=== PATIENT | female | born 1975 | race Caucasian/White ===

== ENCOUNTER 2021-10-28 20:23 | Observation (INO) ==
[2021-10-28 21:27] LABS: Hematocrit (blood only) 44.3 % (37-47); Hemoglobin 14.8 g/dL (12.0-16.0); Mean Corpuscular Hemoglobin 32.2 pg (25-34); Mean Corpuscular Hgb Conc 33.4 g/dL (32-36); Mean Corpuscular Volume 96.3 fL (80-100); Mean Platelet Volume 10.2 fL (7.4-10.4); Platelet Count 444 K/uL (130-400); RDW Coefficient of Variation 13.2 % (11.5-14.5); RDW Standard Deviation 45.9 fL (36.4-46.3); White Blood Count 15.82 K/uL (4.8-10.8)
[2021-10-28 21:43] LABS: Basophils # (auto) 0.04 K/uL (0-0.2); Basophils % (auto) 0.3 %; Eosinophils # (auto) 0.45 K/uL (0-0.5); Eosinophils % (auto) 2.8 %; Immature Granulocytes # (auto) 0.04 K/uL (0.00-0.02); Immature Granulocytes % (auto) 0.3 %; Lymphocytes # (auto) 4.44 K/uL (1.2-3.4); Lymphocytes % (auto) 28.1 %; Monocytes # (auto) 0.87 K/uL (0.11-0.59); Monocytes % (auto) 5.5 %; Neutrophils # (auto) 9.98 K/uL (1.4-6.5)
[2021-10-28 21:47] LABS: Appearance Urine Cloudy (Clear); Bacteria Urine Automated 1+ (Negative); Bilirubin Urine Negative (Negative); Blood Urine Negative (Negative); Color Urine Dark Yellow; Epithelial Cell Urine Auto >30 /lpf (0-5); Glucose Urine UA Negative (Negative); Ketones Urine Trace (Negative); Leukocyte Esterase Urine Trace (Negative); Nitrite Urine Negative (Negative); Protein Urine Negative (Negative); Specific Gravity Urine 1.024 (1.000-1.030); Urobilinogen Urine Negative (Negative); pH Urine 5.5 (4.5-7.5)
[2021-10-28 21:58] LABS: Albumin Globulin Ratio 1.4 (0.9-2); Albumin Level 4.2 gm/dl (3.4-5.0); Bilirubin,Total 0.4 mg/dl (0.2-1.0); Calcium 9.3 mg/dl (8.5-10.1); Creatinine Clr Calc Pharmacy 100.5 ml/min; Est GFR (African American) 93.2 ml/min; Est GFR (Non-African American) 80.5 ml/min; Globulin 2.9 gm/dl (2.5-4.0); Potassium 3.4 mmol/L (3.5-5.1); Total Protein 7.1 gm/dl (6.0-8.3)
[2021-10-28] MEDS ORDERED: ONDANSETRON INJ 2 MG/ML 2 ML VIAL IV STA (22:22)
[2021-10-28] MEDS ORDERED: MoRPHine SULFATE 4 MG/ML 1 ML CARP\\VIAL IV STA (22:22)
[2021-10-28] MEDS ORDERED: HYDROmorphone INJ 0.5 MG/0.5 ML SYR IV STA (22:34)
--- NOTE | 2021-10-28 22:35 | Emergency Department Note ---
History of Present Illness General Chief complaint: Abdominal Pain Stated complaint: ABDOMINAL PAIN Time Seen by Provider: 10/28/21 22:22 Source: patient History of Present Illness Provider complaint: Epigastric abdominal pain Onset (ago): hour(s) Location: abdomen Radiation: non-radiation Pain Consistency: + constant Maximum Pain Intensity: 7 Quality: + stabbing Relieved By: + none Exacerbated By: + other (Deep breaths) Associated symptoms: + shortness of breath (Only because it hurts to take deep breaths); no chest pain, no cough, no fever/chills or no nausea/vomiting This is a 46-year-old female who has been having epigastric pain intermittently for the past 2 weeks. Today the pain got much worse starting 2 hours ago. She describes it as sharp and stabbing in the epigastric region without radiation. She states is worse when she takes deep breaths which makes her slightly short of breath. She denies any chest pain or cough or cold symptoms. She has had no fevers, vomiting, black or bloody stools or diarrhea. She denies any urinary symptoms. She denies any abdominal surgeries other than uterine ablation. Home Medications Medication Instructions Recorded Confirmed Type L norgest/E estradiol-E estrad 1 tab PO DAILY 10/28/21 10/28/21 History 0.15 mg-30 mcg (84)/10 mcg(7) tabs,3mos (Jaimiess) alprazolam 0.5 mg tablet 0.25 mg PO DAILY PRN 10/28/21 10/28/21 History bupropion HCl 150 mg 24 hr tablet, 150 mg PO DAILY 10/28/21 10/28/21 History extended release doxepin 100 mg capsule 100 mg PO DAILY 10/28/21 10/28/21 History ferrous sulfate 325 mg (65 mg 325 mg PO DAILY 10/28/21 10/28/21 History iron) tablet yboqscufkzgq-kfclvnotqcfh-byshcntkq 1 applic TOPICAL DAILY PRN 10/28/21 10/28/21 History 0.01 %-4 %-0.05 % topical cream (Tri-Maria E) modafinil 200 mg tablet 200 mg PO DAILY 10/28/21 10/28/21 History omeprazole 40 mg capsule,delayed 40 mg PO DAILY 10/28/21 10/28/21 History release Allergies Allergy/AdvReac Type Severity Reaction Status Date / Time erythromycin base AdvReac Mild Nausea Verified 10/28/21 22:28 Past Med/Surg History Medical History Depression Social History Smoking Status: Never smoker Feels Safe at Home: Yes Review of Systems See HPI for pertinent positives & negatives. and A total of 10 systems reviewed and were otherwise negative Physical Exam Vital Signs Vital Signs - 24 hr 10/28/21 20:26 10/28/21 21:39 10/28/21 21:40 Temperature 36.0 C L Temperature Source Temporal Artery Scan Pulse Rate 106 H 96 H 99 H Pulse Rate from SpO2 Sensor 96 H 100 H Respiratory Rate 16 18 19 Blood Pressure 167/102 H Blood Pressure Mean 123 Blood Pressure Position Sitting Pulse Oximetry 98 94 94 Oxygen Delivery Method Room Air Sepsis Recent Fever Within 48 Hours No Sepsis New/Unexplained Change in Mental Status No Sepsis Action Taken by Nursing No Action Required 10/28/21 21:50 10/28/21 22:00 10/28/21 22:10 Temperature Temperature Source Pulse Rate 95 H 87 91 H Pulse Rate from SpO2 Sensor 95 H 90 90 Respiratory Rate 17 19 18 Blood Pressure Blood Pressure Mean Blood Pressure Position Pulse Oximetry 94 98 97 Oxygen Delivery Method Sepsis Recent Fever Within 48 Hours Sepsis New/Unexplained Change in Mental Status Sepsis Action Taken by Nursing 10/28/21 22:20 10/28/21 22:30 10/28/21 22:40 Temperature Temperature Source Pulse Rate 102 H 98 H 103 H Pulse Rate from SpO2 Sensor 101 H 96 H 103 H Respiratory Rate 33 H 22 30 H Blood Pressure Blood Pressure Mean Blood Pressure Position Pulse Oximetry 99 97 97 Oxygen Delivery Method Sepsis Recent Fever Within 48 Hours Sepsis New/Unexplained Change in Mental Status Sepsis Action Taken by Nursing 10/28/21 22:50 10/28/21 23:00 10/28/21 23:10 Temperature Temperature Source Pulse Rate 88 90 93 H Pulse Rate from SpO2 Sensor 90 89 94 H Respiratory Rate 17 14 14 Blood Pressure Blood Pressure Mean Blood Pressure Position Pulse Oximetry 97 95 96 Oxygen Delivery Method Sepsis Recent Fever Within 48 Hours Sepsis New/Unexplained Change in Mental Status Sepsis Action Taken by Nursing 10/28/21 23:20 10/28/21 23:27 Temperature Temperature Source Pulse Rate 92 H 90 Pulse Rate from SpO2 Sensor 93 H 91 H Respiratory Rate 13 16 Blood Pressure 140/93 Blood Pressure Mean 108 Blood Pressure Position Pulse Oximetry 94 94 Oxygen Delivery Method Sepsis Recent Fever Within 48 Hours Sepsis New/Unexplained Change in Mental Status Sepsis Action Taken by Nursing Constitutional: Vital signs reviewed. Eyes: Pupils are equal round reactive to light. Conjunctiva are noninjected. ENT: Pharynx is clear without erythema or exudate. Mucous membranes are moist. Neck supple without meningeal signs. Respiratory: Clear to auscultation bilaterally. Breath sounds are equal bilaterally. Cardiovascular: Tachycardic. Regular rhythm. GI: Soft, nondistended with tenderness in the epigastric and right upper quadrant. Positive Shaffer sign. Bowel sounds are present. Musculoskeletal: No peripheral edema. No lower extremity tenderness. Integumentary: No cyanosis. or jaundice. Neurological: The patient is awake and alert. No focal deficits. Psychiatric: Normal affect. Not anxious appearing. Course Administered Medications Discontinued Medications Hydromorphone HCl (Hydromorphone Inj 0.5 Mg/0.5 Ml Syr) 0.5 mg IV NOW STA Stop: 10/28/21 22:35 Last Admin: 10/28/21 22:39 Dose: 0.5 mg Documented by: [id number] Morphine Sulfate (Morphine Sulfate 4 Mg/Ml 1 Ml Carp\Vial) 4 mg IV NOW STA Stop: 10/28/21 22:23 Last Admin: 10/28/21 23:19 Dose: Not Given Documented by: [id number] Ondansetron HCl (Ondansetron Inj 2 Mg/Ml 2 Ml Vial) 4 mg IV NOW STA Stop: 10/28/21 22:23 Last Admin: 10/28/21 22:39 Dose: 4 mg Documented by: [id number] Medical Decision Making Differential Diagnosis Cholelithiasis, cholecystitis, pancreatitis, NH, GERD, peptic ulcer disease Medical Records Attestation: I reviewed the patient's medical records. I did perform a limited focused review of portions of the patient's old chart on the electronic medical record. The patient has had no recent pertinent visits to this hospital. Home Medications Current Medication List: was personally reviewed by me Laboratory Data Attestation: I reviewed the patient's lab results. Result diagrams: 10/28/21 21:13 10/28/21 21:13 Lab Results 10/28/21 10/28/21 10/28/21 Range/Units 21:13 21:13 21:13 WBC 15.82 H (4.8-10.8) K/uL RBC 4.60 (4.2-5.4) M/uL Hgb 14.8 (12.0-16.0) g/dL Hct 44.3 (37-47) % MCV 96.3 (80-100) fL MCH 32.2 (25-34) pg MCHC 33.4 (32-36) g/dL RDW Std Deviation 45.9 (36.4-46.3) fL RDW Coeff of Antione 13.2 (11.5-14.5) % Plt Count 444 H (130-400) K/uL MPV 10.2 (7.4-10.4) fL Immature Gran % (Auto) 0.3 % Neut % (Auto) 63.0 % Lymph % (Auto) 28.1 % [place] % (Auto) 5.5 % Eos % (Auto) 2.8 % Baso % (Auto) 0.3 % Neut # (Auto) 9.98 H (1.4-6.5) K/uL Lymph # (Auto) 4.44 H (1.2-3.4) K/uL [place] # (Auto) 0.87 H (0.11-0.59) K/uL Eos # (Auto) 0.45 (0-0.5) K/uL Baso # (Auto) 0.04 (0-0.2) K/uL Immature Gran # (Auto) 0.04 H (0.00-0.02) K/uL Sodium 137 (136-145) mmol/L Potassium 3.4 L (3.5-5.1) mmol/L Chloride 104 (98-107) mmol/L Carbon Dioxide 23 (21-32) mmol/L Anion Gap 10 (3-11) BUN 7 (6-23) mg/dl Creatinine 0.87 (0.6-1.2) mg/dl Est Cr Clr Drug Dosing 100.5 ml/min Est GFR ( Amer) 93.2 ml/min Est GFR (Non-Af Amer) 80.5 ml/min BUN/Creatinine Ratio 8.0 L (10-20) Glucose 130 H (70-99(Fasting)) mg/dl Calcium 9.3 (8.5-10.1) mg/dl Total Bilirubin 0.4 (0.2-1.0) mg/dl AST 28 (13-39) U/L ALT 22 (7-52) U/L Alkaline Phosphatase 72 (34-104) U/L Total Protein 7.1 (6.0-8.3) gm/dl Albumin 4.2 (3.4-5.0) gm/dl Globulin 2.9 (2.5-4.0) gm/dl Albumin/Globulin Ratio 1.4 (0.9-2) Lipase 67 (11-82) U/L Urine Color Dark Yellow Urine Appearance Cloudy A (Clear) Urine pH 5.5 (4.5-7.5) Ur Specific [place] 1.024 (1.000-1.030) Urine Protein Negative (Negative) Urine Glucose (UA) Negative (Negative) Urine Ketones Trace H (Negative) Urine Blood Negative (Negative) Urine Nitrite Negative (Negative) Urine Bilirubin Negative (Negative) Urine Urobilinogen Negative (Negative) Ur Leukocyte Esterase Trace H (Negative) Urine WBC (Auto) 10-30 H (0-5) /hpf Urine RBC (Auto) 5-10 H (0-4) /hpf U Hyaline Cast (Auto) 1-5 (0-5) /lpf U Epithel Cells (Auto) >30 H (0-5) /lpf Urine Bacteria (Auto) 1+ H (Negative) POC Ur Test (NEG) SARS-CoV-2, RNA, NAAT (NEGATIVE) 10/28/21 10/28/21 Range/Units 21:13 23:26 WBC (4.8-10.8) K/uL RBC (4.2-5.4) M/uL Hgb (12.0-16.0) g/dL Hct (37-47) % MCV (80-100) fL MCH (25-34) pg MCHC (32-36) g/dL RDW Std Deviation (36.4-46.3) fL RDW Coeff of Antione (11.5-14.5) % Plt Count (130-400) K/uL MPV (7.4-10.4) fL Immature Gran % (Auto) % Neut % (Auto) % Lymph % (Auto) % [place] % (Auto) % Eos % (Auto) % Baso % (Auto) % Neut # (Auto) (1.4-6.5) K/uL Lymph # (Auto) (1.2-3.4) K/uL [place] # (Auto) (0.11-0.59) K/uL Eos # (Auto) (0-0.5) K/uL Baso # (Auto) (0-0.2) K/uL Immature Gran # (Auto) (0.00-0.02) K/uL Sodium (136-145) mmol/L Potassium (3.5-5.1) mmol/L Chloride (98-107) mmol/L Carbon Dioxide (21-32) mmol/L Anion Gap (3-11) BUN (6-23) mg/dl Creatinine (0.6-1.2) mg/dl Est Cr Clr Drug Dosing ml/min Est GFR ( Amer) ml/min Est GFR (Non-Af Amer) ml/min BUN/Creatinine Ratio (10-20) Glucose (70-99(Fasting)) mg/dl Calcium (8.5-10.1) mg/dl Total Bilirubin (0.2-1.0) mg/dl AST (13-39) U/L ALT (7-52) U/L Alkaline Phosphatase (34-104) U/L Total Protein (6.0-8.3) gm/dl Albumin (3.4-5.0) gm/dl Globulin (2.5-4.0) gm/dl Albumin/Globulin Ratio (0.9-2) Lipase (11-82) U/L Urine Color Urine Appearance (Clear) Urine pH (4.5-7.5) Ur Specific [place] (1.000-1.030) Urine Protein (Negative) Urine Glucose (UA) (Negative) Urine Ketones (Negative) Urine Blood (Negative) Urine Nitrite (Negative) Urine Bilirubin (Negative) Urine Urobilinogen (Negative) Ur Leukocyte Esterase (Negative) Urine WBC (Auto) (0-5) /hpf Urine RBC (Auto) (0-4) /hpf U Hyaline Cast (Auto) (0-5) /lpf U Epithel Cells (Auto) (0-5) /lpf Urine Bacteria (Auto) (Negative) POC Ur Test NEG (NEG) SARS-CoV-2, RNA, NAAT NEGATIVE (NEGATIVE) Imaging Data Radiologist's Impression: [facility] Patient: DONNA KIM (Female) : 77 Status: ER Date: 10/29/21 00:06 Room #: History: EPIGASTRIC PAIN Slices: 77 Priors: Tech: Nithya Garsia @ [phone] Exams: US RUQ Contrast: Accession Numbers: [id number] Referring Physician: REFERRED SELF Preliminary Findings Only See Final Report For Complete Findings US RUQ: Gallbladder stones. 2.7 cm echogenic nonvascular structure may represent a sludge ball or stone. Wall thickness upper normal at 3 mm. No pericholecystic fluid. Positive sonographic Shaffer sign. Findings are equivocal for acute cholecystitis. Correlate and could consider HIDA scan. No biliary dilation Query mild right hydronephrosis Radiologist: Radha Veras M.D. Study ready at 00:08 and initial results transmitted at 00:25 ECG Data Attestation: I personally reviewed and interpreted this ECG as follows: Indication: + abdominal pain Rate (beats per minute): 84 Rhythm: + normal sinus ECG Dragoon: + Normal ECG ST segments: no ST elevation ECG Findings: no PVCs Comparison ECG Date: no prior available MDM Narrative I did evaluate the patient as noted above. The patient is presenting with epigastric and right upper quadrant pain and tenderness for the past several hours. She has significant tenderness on examination. I am concerned about cholecystitis. access was established. I did treat her with IV Dilaudid and Zofran. I did place an order for continuous cardiac monitoring. The monitor showed sinus tachycardia rate of 106 bpm. I did order and personally review the patient's 12-lead EKG as described above. I did order a urine analysis. This appears to be likely a contaminated specimen. She denies urinary symptoms. Urine test was negative. I did order and review the patient's blood work as noted in the electronic medical record. Her white blood cell count is elevated at 15.8. Platelet count is 444. She is not anemic. Electrolytes are unremarkable other than a potassium of 3.4. LFTs and lipase are within normal limits. I did order an ultrasound of the right upper quadrant. I did review the images myself as well as the radiology report as described above. She does have multiple gallstones as well as a possible sludge ball. There is no pericholecystic fluid but she does have a positive sonographic Shaffer sign as well as her wall thickness being at the upper normal at 3 mm. These findings are concerning for cholecystitis. She does have a clinical examination consistent with cholecystitis and an elevated white count of over 15,000. I did reassess the patient. She states she is feeling much better but still has tenderness in the upper abdomen and right upper quadrant. I did recommend hospitalization and surgical consultation. I did discuss the case with Kevin Robins of the surgical service. He did see the patient in the emergency department and spoke to Dr. Fenton. She was hospitalized for further care and evaluation. COVID screening is negative. Impression & Plan Acute calculous cholecystitis Discharge Plan Visit Data Chief Complaint: Abdominal Pain Stated Complaint: ABDOMINAL PAIN ED Provider: Enrique Horn Discharge Problem: Acute calculous cholecystitis Patient Disposition: Being Evaluated by Surgeon Forms Stand Alone Forms: My [facility] Prescriptions Prescriptions: No Action omeprazole 40 mg Capsule,Delayed Release(Dr/Ec) 40 mg PO DAILY RF: 0 alprazolam 0.5 mg tablet 0.25 mg PO DAILY PRN (Reason: Anxiety) RF: 0 modafinil 200 mg tablet 200 mg PO DAILY RF: 0 doxepin 100 mg capsule 100 mg PO DAILY RF: 0 ferrous sulfate 325 mg (65 mg iron) Tablet 325 mg PO DAILY RF: 0 Tri-Maria E 0.01-4-0.05 % Cream 1 applic TOPICAL DAILY PRN (Reason: UNTIL AREA CLEAR) RF: 0 bupropion HCl 150 mg tablet extended release 24 hr 150 mg PO DAILY RF: 0 L norgest/e.estradiol-e.estrad [Jaimiess] 0.15 mg-30 mcg (84)/10 mcg (7) tablets,dose pack,3 month 1 tab PO DAILY RF: 0 Referrals Referrals: PCP,NO [Physician] -
--- NOTE | 2021-10-29 01:09 | History & Physical Report ---
Date of Service October 29, 2021 Assessment & Plan (1) Cholelithiasis: Plan: Due to the patient's imaging and clinical presentation she will be admitted to the hospital. I suspect her pain is secondary to biliary colic. We will proceed as follows: Analgesia will be provided Antiemetics will be provided We will keep the patient n.p.o. We will hydrate with IV fluids supplementing her potassium in the process We will administer antibiotics in the form of Zosyn We have tentatively plan for performing a cholecystectomy with Dr. Fenton the morning of 10/29/2021. I discussed the surgery with the patient outlining the risks, benefits, and expected postoperative course and she wishes to proceed Additional recommendations will based on operative findings and her postoperative recovery We will use SCDs for DVT prevention, no chemical means due to planned surgery She will be a level 1 full code History of Present Illness Chief Complaint: Abdominal pain Primary Care Provider: Cathleen Sanchez PA-C This is a 46-year-old female who presented to [facility] emergency department secondary to abdominal pain. Patient notes that the pain is located in the epigastric area and right upper quadrant. She reports that the pain radiates somewhat to her back. She did not have any nausea or vomiting and also denies any fevers, shakes, chills. The patient notes that she has been having pain such as this on and off for several weeks and is unrelated to meals. She reported to the emergency department today as she noted the pain was far worse and did not remit like it usually does. She does report having had prior abdominal surgeries that she has had a laparoscopic tubal ligation but has had no other abdominal surgeries. She notes with her current pain the pain was palliated with medicines administered in the emergency department. Today in the emergency department the patient had labs and imaging which independent reviewed. CBC revealed white blood cell count was elevated at 15.8. Hemoglobin, hematocrit, were noted to be normal. Her platelet count was 444,000. Chemistry profile showed sodium and potassium are 137 and 3.4 respectively. BUN and creatinine were both normal. There is no significant elevation of her bilirubin, transaminases, alkaline phosphatase, or lipase. Urinalysis did show 10-30 white blood cells per high-power field but was negative for nitrite. Trace leukocyte Estrace was noted on this specimen. There is also 1+ bacteria in her urine specimen. A test was noted to be negative. A COVID test was negative. A gallbladder ultrasound was performed that did show cholelithiasis. There is also sludge noted in the gallbladder and the gallbladder wall thickness was 3 mm which was the upper limit of normal. No pericholecystic fluid was noted. At the time of my interview she was resting comfortably in bed and she was in no distress. Allergies Allergy/AdvReac Type Severity Reaction Status Date / Time erythromycin base AdvReac Mild Nausea Verified 10/28/21 22:28 Home Medications Medication Instructions Recorded Confirmed Type L norgest/E estradiol-E estrad 1 tab PO DAILY 10/28/21 10/28/21 History 0.15 mg-30 mcg (84)/10 mcg(7) tabs,3mos (Jaimiess) alprazolam 0.5 mg tablet 0.25 mg PO DAILY PRN 10/28/21 10/28/21 History bupropion HCl 150 mg 24 hr tablet, 150 mg PO DAILY 10/28/21 10/28/21 History extended release doxepin 100 mg capsule 100 mg PO DAILY 10/28/21 10/28/21 History ferrous sulfate 325 mg (65 mg 325 mg PO DAILY 10/28/21 10/28/21 History iron) tablet vpvylucyltpw-mnyujlzzzzhw-rcnbxxasr 1 applic TOPICAL DAILY PRN 10/28/21 10/28/21 History 0.01 %-4 %-0.05 % topical cream (Tri-Maria E) modafinil 200 mg tablet 200 mg PO DAILY 10/28/21 10/28/21 History omeprazole 40 mg capsule,delayed 40 mg PO DAILY 10/28/21 10/28/21 History release Past Med/Surg History Medical History Depression Social History Smoking Status: Never smoker Feels Safe at Home: Yes Review of Systems Constitutional: no fever and no chills Eyes: no diplopia Ear, Nose, Mouth, Throat: no ear pain Respiratory: no cough Cardiovascular: no chest pain Gastrointestinal: + abdominal pain; no nausea and no vomiting Genitourinary: no dysuria Musculoskeletal: no back pain Integumentary: no rash Neurologic: no localized weakness Physical Exam Constitutional: WD/WN, vitals as above Eyes: no conjunctival abnormality ENMT: Ears: no hearing impairment and no external ear abnormality Mouth: no oropharynx abnormality Neck: trachea midline Respiratory: normal respiratory effort, lungs clear to auscultation Cardiovascular: Rate/Rhythm: regular rate and regular rhythm Gastrointestinal (Abdomen): Abdomen is soft and nondistended. There is no rebound tenderness or guarding. The patient did have pain with palpation in the epigastric area as well as the right upper quadrant with a positive Shaffer sign. Musculoskeletal: No calf tenderness Skin: no rashes Neurologic: moves all extremities Psychiatric: A+Ox3, euthymic affect Results & Data Results & Data ([facility]) Vital Signs (Past 12 Hours) Vital Signs Temp Pulse Resp BP Pulse Ox 10/28/21 23:27 90 16 140/93 94 10/28/21 23:20 92 H 13 94 10/28/21 23:10 93 H 14 96 10/28/21 23:00 90 14 95 10/28/21 22:50 88 17 97 10/28/21 22:40 103 H 30 H 97 10/28/21 22:30 98 H 22 97 10/28/21 22:20 102 H 33 H 99 10/28/21 22:10 91 H 18 97 10/28/21 22:00 87 19 98 10/28/21 21:50 95 H 17 94 10/28/21 21:40 99 H 19 94 10/28/21 21:39 96 H 18 94 10/28/21 20:26 36.0 C L 106 H 16 167/102 H 98 PG Care Time/CCT Total # of Minutes Spent Total Time Spent with Patient: Total time spent is greater than 50% in coordination of care (as documented) at patient's floor/unit and/or counseling patient: Coding Level of Care Code INT OBSERVATION CARE 70M LVL 3 Diagnoses Cholelithiasis K80.20
[2021-10-29] MEDS ORDERED: ONDANSETRON INJ 2 MG/ML 2 ML VIAL IV PRN ×3 (01:13→10:26)
[2021-10-29] MEDS ORDERED: PIPERACILLIN/TAZOBACTAM 3.375 GM in DEXTROSE 5% 100 ML/100 ML BAG IV STA (01:13)
[2021-10-29] MEDS ORDERED: ACETAMINOPHEN 1,000 MG/100 ML VIAL IV PRN (01:13)
[2021-10-29] MEDS ORDERED: MoRPHine SULFATE 4 MG/ML 1 ML CARP\\VIAL IV PRN (01:13)
[2021-10-29] MEDS ORDERED: POTASSIUM CHLORIDE 10 MEQ in LACTATED RINGER'S 1,000 ML IV SCH (01:15)
[2021-10-29] MEDS ORDERED: ALPRAZolam 0.25 MG TABLET PO PRN (03:37)
[2021-10-29] MEDS ORDERED: PIPERACILL/TAZOBAC CONSULT ACTIVE PRN ×2 (03:37)
--- NOTE | 2021-10-29 07:57 | Anesthesiology Consultation ---
Date of Service October 29, 2021 Assessment & Plan (1) Encounter for pre-operative examination: Chart Review Chart Review: Acceptable Risk for Surgery History Surgery Operation Date: 10/29/21 08:40 Proposed Procedures p Laparoscopic Cholecystectomy Possible Open - Moshe Fenton MD, FACS Height/Weight Height: 5 ft 8 in Weight: 99 kg Allergies Allergy/AdvReac Type Severity Reaction Status Date / Time erythromycin base AdvReac Mild Nausea Verified 10/28/21 22:28 Medications Home Medications Medication Instructions Recorded Confirmed Last Taken L norgest/E estradiol-E estrad 1 tab PO DAILY 10/28/21 10/28/21 10/28/21 0.15 mg-30 mcg (84)/10 mcg(7) tabs,3mos (Jaimiess) alprazolam 0.5 mg tablet 0.25 mg PO DAILY PRN 10/28/21 10/28/21 Unknown bupropion HCl 150 mg 24 hr tablet, 150 mg PO DAILY 10/28/21 10/28/21 10/28/21 extended release doxepin 100 mg capsule 100 mg PO DAILY 10/28/21 10/28/21 10/28/21 ferrous sulfate 325 mg (65 mg 325 mg PO DAILY 10/28/21 10/28/21 10/28/21 iron) tablet enmitqjnznto-cjtsxinibpha-quyisshng 1 applic TOPICAL DAILY PRN 10/28/21 10/28/21 Unknown 0.01 %-4 %-0.05 % topical cream (Tri-Maria E) modafinil 200 mg tablet 200 mg PO DAILY 10/28/21 10/28/21 10/28/21 omeprazole 40 mg capsule,delayed 40 mg PO DAILY 10/28/21 10/28/21 10/28/21 release Active Medications Generic Name Dose Route Start Last Admin Trade Name Freq PRN Reason Stop Dose Admin Potassium Chloride 10 meq/ 1,005 mls @ 75 mls/hr 10/29/21 01:15 10/29/21 05:17 Lactated Ringer's IV 11/28/21 01:14 75 mls/hr .[id number] BRIANNA Administration Miscellaneous 1 ea 10/29/21 08:00 10/29/21 07:37 Order Awaiting Action: Fluocinolone-Hydroq.-Tretinoin [Tri-Maria E] 0.01-4-0.05 % Cream N/A 11/28/21 07:59 Not Given QS BRIANNA Miscellaneous 1 ea 10/29/21 08:00 10/29/21 07:38 Order Awaiting Action: L Norgest/E.Estradiol-E.Estrad [Jaimiess] 0.15 Mg-30 Mcg (84)/10 N/A 11/28/21 07:59 Not Given QS BRIANNA Past Medical History Medical History Depression Social History Smoking Status: Never smoker Hx Alcohol Use: No Hx Substance Use: No Physical Exam Vital Signs Last Vital Signs Temp 36.9 C 10/29/21 07:19 Pulse 84 10/29/21 07:19 Resp 16 10/29/21 07:19 BP 125/79 10/29/21 07:19 Pulse Ox 96 10/29/21 07:19 Testing Laboratory Results Urine Color Dark Yellow 10/28/21 21:13 Urine Appearance Cloudy (Clear) A 10/28/21 21:13 Urine pH 5.5 (4.5-7.5) 10/28/21 21:13 Ur Specific [place] 1.024 (1.000-1.030) 10/28/21 21:13 Urine Protein Negative (Negative) 10/28/21 21:13 Urine Glucose (UA) Negative (Negative) 10/28/21 21:13 Urine Ketones Trace (Negative) H 10/28/21 21:13 Urine Nitrite Negative (Negative) 10/28/21 21:13 Ur Leukocyte Esterase Trace (Negative) H 10/28/21 21:13 Urine WBC (Auto) 10-30 /hpf (0-5) H 10/28/21 21:13 Urine RBC (Auto) 5-10 /hpf (0-4) H 10/28/21 21:13 U Hyaline Cast (Auto) 1-5 /lpf (0-5) 10/28/21 21:13 U Epithel Cells (Auto) >30 /lpf (0-5) H 10/28/21 21:13 Urine Bacteria (Auto) 1+ (Negative) H 10/28/21 21:13 10/28/21 21:13 POC Ur Test NEG Laboratory Tests 10/28/21 10/28/21 21:13 21:13 Hgb 14.8 Plt Count 444 H Potassium 3.4 L
[2021-10-29 08:00] LABS: Basophils # (auto) 0.04 K/uL (0-0.2); Basophils % (auto) 0.4 %; Eosinophils # (auto) 0.27 K/uL (0-0.5); Eosinophils % (auto) 2.7 %; Hematocrit (blood only) 40.9 % (37-47); Hemoglobin 13.5 g/dL (12.0-16.0); Immature Granulocytes # (auto) 0.02 K/uL (0.00-0.02); Immature Granulocytes % (auto) 0.2 %; Lymphocytes # (auto) 2.67 K/uL (1.2-3.4); Lymphocytes % (auto) 26.8 %; Mean Corpuscular Hemoglobin 31.3 pg (25-34); Mean Corpuscular Volume 94.9 fL (80-100); Mean Platelet Volume 10.2 fL (7.4-10.4); Monocytes # (auto) 0.72 K/uL (0.11-0.59); Monocytes % (auto) 7.2 %; Neutrophils # (auto) 6.24 K/uL (1.4-6.5); Neutrophils % (auto) 62.7 %; Platelet Count 397 K/uL (130-400); RDW Coefficient of Variation 13.2 % (11.5-14.5); RDW Standard Deviation 45.8 fL (36.4-46.3); Red Blood Count 4.31 M/uL (4.2-5.4); White Blood Count 9.96 K/uL (4.8-10.8)
[2021-10-29] MEDS ORDERED: PROPOFOL IV EMULSION 10 MG/ML 20 ML VIAL IV ONE (08:02)
[2021-10-29] MEDS ORDERED: ONDANSETRON INJ 2 MG/ML 2 ML VIAL ONE (08:02)
[2021-10-29] MEDS ORDERED: MIDAZOLAM HCL 1 MG/ML 2ML VIAL ONE (08:02)
[2021-10-29] MEDS ORDERED: fentaNYL citrate 100 MCG/2 ML VIAL ONE ×2 (08:02)
[2021-10-29] MEDS ORDERED: DEXAMETHASONE SOD INJ 4 MG/ML VIAL ONE (08:02)
[2021-10-29] MEDS ORDERED: NEOSTIGMINE METHYLSULFATE 1 MG/ML 10ML VIAL ONE (08:02)
[2021-10-29] MEDS ORDERED: LIDOCAINE 2% 2 ML VIAL/AMP(20MG/ML) INFIL ONE (08:02)
[2021-10-29] MEDS ORDERED: GLYCOPYRROLATE 0.2 MG/ML VIAL ONE (08:02)
[2021-10-29] MEDS ORDERED: KETOROLAC 30 MG/ML VIAL IV PRN (08:09)
[2021-10-29] MEDS ORDERED: PROMETHAZINE HCL 12.5 MG in SODIUM CHLORIDE 0.9% 50 ML IV PRN ×2 (08:09→10:26)
[2021-10-29] MEDS ORDERED: ATROPINE SULFATE 0.1 MG/ML 10ML SYR IV PRN (08:09)
[2021-10-29] MEDS ORDERED: fentaNYL citrate 100 MCG/2 ML VIAL IV PRN (08:09)
[2021-10-29] MEDS ORDERED: BUPIVACAINE 0.5 % 5 MG/1 ML MPF 30ML VIAL ONE (08:20)
--- NOTE | 2021-10-29 08:52 | Ultrasound Report ---
US gallbladder CLINICAL HISTORY: Right upper quadrant abdominal pain. Evaluate for acute cholecystitis. COMPARISON STUDY: No previous studies for comparison. FINDINGS: This exam is compromised by suboptimal penetration. Pancreas is largely obscured. No hepati c lesions are identified. Caliber of the common bile duct is normal, measuring 5 mm. A large shadowin g gallstone within the gallbladder is noted. Note is also made of a 2.7 cm echogenic focus within the gallbladder without color flow. Positive sonographic Shaffer sign was elicited. No gallbladder wall t hickening. No pericholecystic fluid. Pancreas is largely obscured. There is mild right collecting sys tem dilatation. IMPRESSION: Cholelithiasis with positive sonographic Shaffer sign. These findings raise the possibili ty of acute cholecystitis. ACT 112: Negative or not required by law. Electronically signed by: Harjit Ocasio M.D. 10/29/2021 8:51 AM
[2021-10-29 09:00] LABS: Albumin Globulin Ratio 1.5 (0.9-2); Albumin Level 3.8 gm/dl (3.4-5.0); Bilirubin,Total 0.7 mg/dl (0.2-1.0); Calcium 9.1 mg/dl (8.5-10.1); Creatinine Clr Calc Pharmacy 116.5 ml/min; Est GFR (African American) 111.6 ml/min; Est GFR (Non-African American) 96.3 ml/min; Globulin 2.5 gm/dl (2.5-4.0); Total Protein 6.3 gm/dl (6.0-8.3)
[2021-10-29] MEDS ORDERED: modafiniL 100 MG TAB PO SCH (09:00)
[2021-10-29] MEDS ORDERED: PANTOprazole 40 MG TAB PO SCH (09:00)
[2021-10-29] MEDS ORDERED: buPROPion XL 150 MG TABCR PO SCH (09:00)
[2021-10-29] MEDS ORDERED: ROCURONIUM BROMIDE 10 MG/ML 5 ML VIAL IV ONE (09:10)
[2021-10-29] MEDS ORDERED: KETOROLAC 30 MG/ML VIAL ONE (09:10)
--- NOTE | 2021-10-29 09:21 | Post Operative Brief Note ---
PG Immediate Post Op with CF Date of Surgery October 29, 2021 Pre & Post Diagnosis Operation Date: 10/29/21 08:40 Pre-Op Diagnosis: Cholelithiasis Post-Op Diagnosis: Cholelithiasis, acute cholecystitis I identified the patient and participated in the time-out.: Yes Procedure Operation Date: 10/29/21 08:40 Actual Procedures p Laparoscopic Cholecystectomy (Not Applicable) - Moshe Fenton MD, FACS Surgeon Moshe Fenton MD, FACS Grants Analyst Magaly Ugalde Estimated Blood Loss 10 Findings Consistent with Post-Op Diagnosis Edema of the gallbladder and a small stone in the cystic duct sludge in the gallbladder Specimens Specimen Description: A. Gallbladder
[2021-10-29] MEDS ORDERED: ACETAMINOPHEN 1,000 MG/100 ML VIAL IV ONE (09:30)
[2021-10-29] MEDS ORDERED: SODIUM CHLORIDE 0.9% 50 ML BAG ONE (09:50)
[2021-10-29] MEDS ORDERED: PROMETHAZINE HCL INJ 25 MG/ML 1 ML VIAL ONE (09:51)
[2021-10-29] MEDS ORDERED: PIPERACILLIN/TAZOBACTAM 3.375 GM in DEXTROSE 5% 100 ML IV SCH (10:00)
--- NOTE | 2021-10-29 10:18 | Anesthesiology Progress Note ---
Date of Service October 29, 2021 Anesthesia Post Procedure Vital Signs Vital Signs: Temp Pulse Pulse Pulse Resp BP BP 10/29/21 10:05 68 12 10/29/21 09:55 36.4 C L 63 24 10/29/21 09:45 65 20 10/29/21 09:35 63 12 10/29/21 09:27 36.4 C L 75 12 10/29/21 08:00 36.9 C 88 18 148/96 H 10/29/21 07:19 36.9 C 84 16 10/29/21 03:30 36.7 C 88 16 10/29/21 02:29 10/29/21 02:28 136/90 10/29/21 02:23 36.6 C 20 10/28/21 23:29 90 14 10/28/21 23:27 90 16 140/93 10/28/21 23:20 92 H 13 10/28/21 23:10 93 H 14 10/28/21 23:00 90 14 10/28/21 22:50 88 17 10/28/21 22:40 103 H 30 H 10/28/21 22:30 98 H 22 10/28/21 22:20 102 H 33 H 10/28/21 22:10 91 H 18 10/28/21 22:00 87 19 10/28/21 21:50 95 H 17 10/28/21 21:40 99 H 19 10/28/21 21:39 96 H 18 10/28/21 20:26 36.0 C L 106 H 16 167/102 H BP Pulse Ox 10/29/21 10:05 157/99 H 94 10/29/21 09:55 155/98 H 95 10/29/21 09:45 146/98 H 95 10/29/21 09:35 139/95 96 10/29/21 09:27 132/93 96 10/29/21 08:00 98 10/29/21 07:19 125/79 96 10/29/21 03:30 132/87 97 10/29/21 02:29 97 10/29/21 02:28 10/29/21 02:23 136/90 97 10/28/21 23:29 94 10/28/21 23:27 94 10/28/21 23:20 94 10/28/21 23:10 96 10/28/21 23:00 95 04/20/22 22:50 97 10/28/21 22:40 97 10/28/21 22:30 97 10/28/21 22:20 99 10/28/21 22:10 97 10/28/21 22:00 98 10/28/21 21:50 94 10/28/21 21:40 94 10/28/21 21:39 94 10/28/21 20:26 98 Pain Intensity Bilateral Chest: Pain Intensity: 8 Abdomen: Pain Intensity: 4 Transfer of Care Handoff Completed per policy Notes Mental Status: alert / awake / arousable Patient Amnestic to Procedure: Yes Nausea / Vomiting: adequately controlled Pain: adequately controlled Airway Patency, RR, SpO2: stable & adequate BP & HR: stable & adequate Hydration State: stable & adequate Anesthetic Complications: no major complications apparent
[2021-10-29] MEDS ORDERED: oxyCODONE HCL IR 5 MG TAB (IMMEDIATE RELEASE) PO PRN (10:26)
[2021-10-29] MEDS ORDERED: ACETAMINOPHEN 325 MG TAB PO PRN (10:26)
--- NOTE | 2021-10-29 12:56 | Operative Report (OR) ---
DATE OF OPERATION: 10/29/2021. NAME OF OPERATION: Laparoscopic cholecystectomy. PREOPERATIVE DIAGNOSIS: Acute cholecystitis. POSTOPERATIVE DIAGNOSIS: Acute cholecystitis. STAFF SURGEON: Moshe Fenton MD [employer]W ORDNANCEMAN: Nathalie Ugalde PA-C ANESTHESIA: General. DESCRIPTION OF PROCEDURE: The patient was brought in the operating room and placed on the operating table in supine position. Her abdomen was prepped and draped in the usual fashion. Pneumatic stocki ngs and orogastric tube were placed. A 0.5% plain Marcaine was used to anesthetize all incisions. A n incision was made just at the upper part of the umbilicus, carrying dissection down identifying the fascia, placing a Veress needle producing pneumoperitoneum. An 11 mm port was placed at this level and then under visualization, three 5 mm ports were placed, one cephalad and two laterally. Gallblad tiffany was grasped and retracted. It was edematous. There were some adhesions to the gallbladder near the eyad hepatis. These were taken down. Dissection was carried out to the eyad hepatis, identify ing the cystic duct and cystic artery. Cystic duct was clipped and transected. There was a small st one in the cystic duct, which was likely occluding it. The cystic artery was identified, clipped and transected and the gallbladder dissected away from the liver bed in the usual fashion. Gallbladder was then placed in an Endobag. The Endobag was removed through the umbilical site. I did have to en large the fascial defect slightly to remove the gallbladder. The ultrasound showed a 2.7 cm echogeni c focus. This was purely sludge and gravel type stones. At this point, the fascia at the umbilicus was closed using interrupted 0 Vicryl suture. The skin was reapproximated using subcuticular 4-0 Mon ocryl with Dermabond. The patient was transferred to the recovery room in stable condition. My assi shaquille helped with prepping, draping, removal of gallbladder and closure of the wounds. Job ID: [id number]
--- NOTE | 2021-10-29 17:59 | Electrocardiogram Report ---
Test Reason : Blood Pressure : / mmHG Vent. Rate : 084 BPM Atrial Rate : 084 BPM P-R Int : 156 ms QRS Dur : 084 ms QT Int : 370 ms P-R-T Axes : 049 043 030 degrees QTc Int : 437 ms Normal sinus rhythm Normal ECG No previous ECGs available Confirmed by Yovanny Rodriguez ([id number]) on 10/29/2021 5:58:36 PM Referred By: REFERRED SELF Confirmed By:Dennis Rodriguez
[2021-10-29] MEDS ORDERED: DOXEPIN HCL 50 MG CAPSULE PO SCH (21:00)
== END 2021-10-29 14:10 | disposition home or self-care (01) ==
LOC: ED 20:23 → 3N 20:23